=== PATIENT | male | born 1980 | race Caucasian/White ===

== ENCOUNTER 2017-10-11 23:29 | Observation (INO) | payer OTHER ==
[~2017-10-11] VITALS: Ht 180.3 cm; Wt 86.0 kg
[~2017-10-11 23:29] MED LIST: NOHOMEMEDS
[2017-10-12 00:21] LABS: BASOPHIL (%) 0.7 % (0-1); BASOPHIL COUNT 0.1 K/uL (0-0.1); EOSINOPHIL (%) 3.5 % (0-5); EOSINOPHIL COUNT 0.3 K/uL (0-0.3); HEMATOCRIT 33.2 % (38.0-50.0); IMMATURE GRANULOCYTE (%) 0.8 % (0.0-0.7); LYMPHOCYTE (%) 34.5 % (15-42); LYMPHOCYTE COUNT 3.4 K/uL (1.0-2.8); MCH 31.1 PG (29.0-34.0); MCHC 33.1 G/DL (30.0-36.0); MCV 93.8 FL (86-99); MONOCYTE COUNT 0.8 K/uL (0-0.8); NEUTROPHIL (%) 52.5 % (45-76); NEUTROPHIL COUNT 5.2 K/uL (1.8-6.4); PLATELET COUNT 504 K/uL (156-360); RBC DIS.WIDTH-CV 12.8 % (11.8-14.6); RBC DIS.WIDTH-SD 43.8 % (39-53); RED BLOOD COUNT 3.54 M/uL (4.00-5.50); WHITE BLOOD COUNT 9.8 K/uL (4.1-10.2)
[2017-10-12 00:38] LABS: ALBUMIN 4.1 g/dL (3.2-4.8)
[2017-10-12 00:39] LABS: CHLORIDE 103 mEq/L (99-109); POTASSIUM 3.7 mEq/L (3.7-5.4); SODIUM 142 mEq/L (136-147)
[2017-10-12 00:41] LABS: GLUCOSE 80 mg/dL (70-99); TOTAL PROTEIN 7.3 g/dL (6.4-8.3)
[2017-10-12 00:43] LABS: TOTAL BILIRUBIN 0.2 mg/dL (0.0-1.0)
[2017-10-12 00:44] LABS: ALKALINE PHOSPHATASE 94 IU/L (3-129)
[2017-10-12 00:45] LABS: CREATININE 1.6 mg/dL (0.6-1.3); GFR ESTIMATE (CALCULATED) 51 mL/min/ (58.99-99999)
[2017-10-12 00:46] LABS: AST (GOT) 29 IU/L (2-34); UREA NITROGEN (BUN) 16 mg/dL (9-23)
[2017-10-12 00:47] LABS: ALT (GPT) 40 IU/L (3-49)
[2017-10-12 00:48] LABS: LIPASE 105 U/L (1.0-51.0)
[2017-10-12 01:09] LABS: TROP-I INTERPRETATION NEGATIVE; TROPONIN-I < 0.01 ng/mL (0.0-0.30)
[2017-10-12 04:33] LABS: APPEARANCE CLEAR ((CLEAR)); BILIRUBIN NEGATIVE; BLOOD NEGATIVE; COLOR YELLOW ((YELLOW)); GLUCOSE (STRIP) NEGATIVE; KETONES NEGATIVE; LEUKOCYTES NEGATIVE; NITRITE NEGATIVE; PROTEIN (STRIP) NEGATIVE; SPECIFIC GRAVITY 1.013 (1.000-1.030); UCUL ADDED? NO
[2017-10-12 04:42] LABS: AMPHETAMINE NEGATIVE (500 ng/mL); BARBITURATES NEGATIVE (200 ng/mL); BENZODIAZEPINES PRESUMPTIVE POSITIVE (150 ng/mL); BUPRENORPHINE NEGATIVE (10 ng/mL); COCAINE PRESUMPTIVE POSITIVE (150 ng/mL); METHADONE NEGATIVE (200 ng/mL); METHAMPHETAMINE NEGATIVE (500 ng/mL); OPIATES (MORPHINE) NEGATIVE (100 ng/mL); OXYCODONE NEGATIVE (100 ng/mL); PHENCYCLIDINE NEGATIVE (25 ng/mL); PROPOXYPHENE NEGATIVE (300 ng/mL); THC CANNABINOIDS NEGATIVE (50 ng/mL); TRICYCLIC ANTIDEPRESSANTS NEGATIVE (300 ng/mL)
[2017-10-12 05:12] VITALS: BP 136/91
[2017-10-12 05:12] LABS: BENZODIAZEPINES, URINE SCREEN Negative (200 ng/mL)
[2017-10-12 08:41] VITALS: BP 125/85
[2017-10-12 09:19] LABS: TROP-I INTERPRETATION NEGATIVE; TROPONIN-I < 0.01 ng/mL (0.0-0.30)
[2017-10-12 11:18] LABS: CREATINE KINASE 66 IU/L (1-294)
== END 2017-10-12 13:22 | disposition home or self-care (01) ==
LOC: EME 23:29 → EDOF 10-12 03:58 → 4SOUTH 10-12 04:54
PROVIDERS: Emergency Medicine; Hospitalist
DX: R07.9 Chest pain, unspecified (principal); R10.32 Left lower quadrant pain; N17.9 Acute kidney failure, unspecified; Z99.2 Dependence on renal dialysis; R79.1 Abnormal coagulation profile; M62.82 Rhabdomyolysis; F14.10 Cocaine abuse, uncomplicated; R30.0 Dysuria; R06.02 Shortness of breath; R42 Dizziness and giddiness; F17.200 Nicotine dependence, unspecified, uncomplicated; Z82.3 Family history of stroke; Z88.0 Allergy status to penicillin; Z88.8 Allergy status to other drugs, medicaments and biological substances
CPT/HCPCS: 71046; 74176; 78582; 80053; 81003; 82550; 83690; 83880; 84484; 84999; 85025; 85379; 93005; 99281; 99285; A9540; A9567; G0378; J3010